=== PATIENT | male | born 2005 | race Caucasian/White ===

== ENCOUNTER 2024-01-08 16:29 | Emergency (ER) | payer BC, SELFPAY ==
--- NOTE | ~2024-01-08 | XR_ITS ---
EXAMINATION: XR chest 2V Exam Date/Time: 01/08/2024 17:00 CDT HISTORY: CHEST PAIN UPPER CENTER Comparison: None. RESULT: Lines, tubes, and devices: None. Lungs and pleura: Clear. Cardiomediastinal silhouette: Normal. Other: No acute osseous or upper abdominal finding. IMPRESSION: No acute cardiopulmonary process. Reviewed, dictated and finalized at location K.
[2024-01-08 16:42] VITALS: BP 125/75; PULSE 90; RESP 16; TEMP 36.8; O2SAT 100
--- NOTE | 2024-01-08 17:11 | ECG_ITS ---
Measurements Intervals [place] Rate: 68 P: 48 WI: 162 QRS: 46 QRSD: 96 T: 33 QT: 375 QTc: 399 Interpretive Statements SINUS RHYTHM NORMAL ECG NO PREVIOUS ECG AVAILABLE FOR COMPARISON Electronically Signed On 01-09-2024 6:32:52 CDT by Alexander Padilla D.O.
--- NOTE | 2024-01-08 17:14 | ED.GENADULT ---
HPI - General Adult General Chief complaint: Chest Pain Stated complaint: Chest Pain Source: patient Mode of arrival: ambulatory Limitations: no limitations History of Present Illness HPI narrative: Patient presents for evaluation of chest pain and back pain. Symptom onset approximately two months ago. Symptoms lasted for several weeks and then stopped. He then developed recurrence of his symptoms for about one week. He then experienced a third episode which started yesterday and continues at this time. Pain was initially just below both scapulas. He states that pain was a dull ache and rates his pain from the initial episode as 5/10 in severity. The location of his pain during the second episode was the same as the first but severity of the second episode was worse than the first. He continues to have pain in the same location during the current episode but also has sternal chest pain this time. The pain in his sternum is similar in sensation. He states that pain is worse with certain movements and deep inspiration. He denies shortness of breath. He has an occasional cough but nothing significant. No personal or family history of DVT/PE. Denies leg swelling. He has not tried any therapies to assist with his symptoms. He denies any heartburn. He states his mother advised him that she had some heart problems but will not tell him specifics until he is older. He does have an underlying history of anxiety, depression and bipolar. He is currently on sertraline. Sounds like he was previously on another agent for bipolar disorder but that has since been discontinued. He states his stress levels are moderate in severity. He attributes his stress to working in a job in which he is not very fulfilled, living with a roommate not of his choosing, and needing to cancel plans to attend college in [place]. He does not smoke, vape or use illicit drugs. Related Data Home Medications Medication Instructions Recorded Confirmed sertraline 50 mg tablet mg 01/08/24 Allergies Allergy/AdvReac Type Severity Reaction Status Date / Time No Known Allergies Allergy Verified 01/08/24 16:44 Review of Systems Review of Systems: CONSTITUTIONAL: Denies fever, chills, or sweats. EYES: Denies visual changes, redness, or discharge. ENT: Denies rhinorrhea, congestion, sore throat, or otalgia. CARDIOVASCULAR: Reports chest pain. Denies palpitations, or edema. RESPIRATORY: Denies cough or dyspnea. GASTROINTESTINAL: Denies abdominal pain, nausea, vomiting, or diarrhea. GENITOURINARY: Denies dysuria or hematuria. SKIN: Denies rash or itching. MUSCULOSKELETAL: Reports back pain. NEUROLOGIC: Denies headache, numbness, dizziness, or weakness. PSYCHIATRIC: Denies anxiety or depression. PMFSH Past Medical History Medical History Anxiety Bipolar disorder Depression Surgical History Surgical History No pertinent past surgical history Family History Family History Mother Unknown family medical history Social History Social History Smoking status: Never smoker Substance use: never Living arrangements: with roommate(s) Gender identity (if verbalized by the patient): Male Spiritual care concerns: No Exam Narrative: GENERAL: Well-appearing, well-nourished, and in no acute distress. HEAD: Normocephalic, atraumatic. EYES: PERRLA and EOMI. ENT: Nares clear, no rhinorrhea or epistaxis. Mucous membranes moist. Oropharynx without tonsillar hypertrophy exudate or other lesions. Bilateral TMs pearly wallace nonbulging NECK: Supple. No adenopathy or masses. No carotid bruits or JVD CHEST: Clear to auscultation. No respiratory distress. No wheezes rales or rhonchi HEART: Regular rate and rhythm.
== END 2024-01-08 18:20 | disposition left against medical advice (07) ==
PROVIDERS: Emergency Provider Nurse Practitioner
DX: R07.9 Chest pain, unspecified (principal); F41.9 Anxiety disorder, unspecified; F32.A Depression, unspecified
CPT/HCPCS: 71046; 93005; 99213; G0463